=== PATIENT | female | born 1955 | race Caucasian/White ===

== ENCOUNTER → 2023-04-11 | Outpatient (CLI) | payer OTHER ==
[2023-04-11 15:50] LABS: Source, Urine Voided
[2023-04-11 16:58] LABS: Appearance, Urine Clear (Clear); Bilirubin, Urine Neg (Neg); Blood, Urine 1+ (Neg); Color, Urine Yellow (P-Yellow); Glucose Qualitative, Urine Neg (Neg); Ketones, Urine Neg (Neg); Leukocyte Esterase, Urine Neg (Neg); Nitrite, Urine Neg (Neg); Protein, Urine Neg (Neg); Urobilinogen, Urine NORM (Normal)
[2023-04-11 17:05] LABS: Bacteria Rare /hpf; Red Blood Cells, Urine 0-2 /hpf (0-2); Squamous Epithelial Cells Few /hpf (Few); White Blood Cells, Urine 0-2 /hpf (0-5)
== END ==
LOC: LAB SHORT 12:00 → LAB 12:00
PROVIDERS: Internal Medicine Nephrology
DX: N18.30 Chronic kidney disease, stage 3 unspecified (principal); D63.1 Anemia in chronic kidney disease
CPT/HCPCS: 81001

== ENCOUNTER → 2023-10-01 | Outpatient (CLI) | payer MEDICARE, OTHER ==
[~2023-10-01] MED LIST: ACETAMINOPHEN500 M2 PO; BUMETANIDE2 M6 PO; CARBAMAZEPINE200 M7 PO; FLUTICASONE-SA1 EAC9 IH; JANTOVEN3 M2 PO; KLOR-CON 1010 ME9 PO; METO5 PO; METOPROLOL SUCC25 MG PO; OYSTER SHELL C500 MG PO; SPIRONOLACTONE25 MG PO; VITAMIN D325 MC3 PO
[2023-10-01 10:28] LABS: Albumin, Blood 3.2 g/dL (3.4-5.0); Anion Gap 13 mmol/L (6-16); Blood Urea Nitrogen 23 mg/dL (8-24); Bun/Creatinine Ratio 23.7 (12.0-20.0); CO2, Blood 28 mmol/L (21-32); Calcium, Blood 9.4 mg/dL (8.5-10.1); Chloride, Blood 104 mmol/L (98-108); Creatinine, Blood 0.97 mg/dL (0.40-1.00); Glomerular Filtration Rate 64 (60-); Glucose, Blood 110 mg/dL (70-99); Magnesium, Blood 2.2 mg/dL (1.6-2.4); Phosphorus, Blood 2.7 mg/dL (2.5-4.9); Potassium, Blood 3.7 mmol/L (3.5-5.5); Sodium, Blood 141 mmol/L (136-145); Thyroid Stimulating Hormone 3.845 uIU/mL (0.360-4.800)
[2023-10-01 11:04] LABS: Free Thyroxine Index 2.5 % (1.3-4.8)
== END ==
LOC: LAB SHORT 09:50 → LAB 09:50
PROVIDERS: Internal Medicine Nephrology
DX: N18.30 Chronic kidney disease, stage 3 unspecified (principal); E29.1 Testicular hypofunction; E55.9 Vitamin D deficiency, unspecified; N25.81 Secondary hyperparathyroidism of renal origin; R94.5 Abnormal results of liver function studies; R94.6 Abnormal results of thyroid function studies; R76.9 Abnormal immunological finding in serum, unspecified
CPT/HCPCS: 80069; 83735; 84436; 84443; 84479; 85018

== ENCOUNTER 2023-10-21 02:37 | Day surgery (SDC) | payer MEDICARE, OTHER | END 2023-10-21 23:35 | disposition home or self-care (01) | LOC: WOUND | DX: L97.812 Non-pressure chronic ulcer of other part of right lower leg with fat layer exposed (principal); I89.0 Lymphedema, not elsewhere classified; I10 Essential (primary) hypertension; I73.9 Peripheral vascular disease, unspecified; I87.2 Venous insufficiency (chronic) (peripheral); I50.9 Heart failure, unspecified | CPT/HCPCS: G0463 ==

== ENCOUNTER 2023-10-30 02:19 | Day surgery (SDC) | payer MEDICARE, OTHER | END 2023-10-30 23:01 | disposition home or self-care (01) | LOC: WOUND 02:19 | DX: I89.0 Lymphedema, not elsewhere classified (principal); I11.0 Hypertensive heart disease with heart failure; I50.9 Heart failure, unspecified; I73.9 Peripheral vascular disease, unspecified | CPT/HCPCS: G0463 ==

== ENCOUNTER 2024-02-14 17:29 | Emergency (ER) | payer MEDICARE, OTHER ==
[~2024-02-14] VITALS: Ht 152.4 cm; Wt 120.7 kg
[2024-02-14 18:07] LABS: Source, Urine Clean Catch
[2024-02-14 18:11] LABS: Appearance, Urine Clear (Clear); Bilirubin, Urine Neg (Neg); Blood, Urine 2+ (Neg); Glucose Qualitative, Urine Neg (Neg); Ketones, Urine Neg (Neg); Leukocyte Esterase, Urine Neg (Neg); Nitrite, Urine Neg (Neg); Protein, Urine Neg (Neg); Specific Gravity, Urine 1.015 (1.003-1.022); Urobilinogen, Urine NORM (Normal)
[2024-02-14 18:17] LABS: Color, Urine Pale Yellow (P-Yellow)
[2024-02-14 18:19] LABS: Bacteria Rare /hpf; Red Blood Cells, Urine 0-2 /hpf (0-2); Squamous Epithelial Cells Not Seen /hpf (Few); White Blood Cells, Urine 0-2 /hpf (0-5)
[2024-02-14 18:27] LABS: BASOPHILS ABSOLUTE AUTO 0.02 K/mm3 (0.00-0.23); BASOPHILS PERCENT AUTO 0 % (0-2); EOSINOPHILS ABSOLUTE AUTO 0.08 K/mm3 (0.00-0.68); EOSINOPHILS PERCENT AUTO 1 % (0-6); Hemoglobin 13.4 g/dL (11.5-16.0); IMMATURE GRAN ABSOLUTE AUTO 0.04 K/mm3 (0.00-0.10); IMMATURE GRAN PERCENT AUTO 0 % (0-1); LYMPHOCYTES ABSOLUTE AUTO 0.66 K/mm3 (0.84-5.20); LYMPHOCYTES PERCENT AUTO 6 % (21-46); MONOCYTES ABSOLUTE AUTO 0.65 K/mm3 (0.16-1.47); MONOCYTES PERCENT AUTO 6 % (4-13); Mean Corpuscular HGB 29.7 pg (26.0-34.0); Mean Corpuscular HGB Conc 32.7 g/dL (31.5-36.5); Mean Corpuscular Volume 91 fL (80-100); NEUTROPHILS ABSOLUTE AUTO 9.03 K/mm3 (1.96-9.15); NEUTROPHILS PERCENT AUTO 86 % (41-73); Platelet Count 239 K/mm3 (150-400); RDW Coefficient Variation 13.3 % (11.7-14.2); RDW Standard Deviation 44.2 fL (35.1-46.3); Red Blood Cell Count 4.51 M/mm3 (3.80-5.20); White Blood Cell Count 10.48 K/mm3 (4.00-11.30)
[2024-02-14 18:48] LABS: Albumin, Blood 3.3 g/dL (3.4-5.0); Albumin/Globulin Ratio 0.6 (0.8-1.8); Bilirubin, Total 0.5 mg/dL (0.1-1.0); Bun/Creatinine Ratio 16.3 (12.0-20.0); Calcium, Blood 9.2 mg/dL (8.5-10.1); Creatinine, Blood 1.04 mg/dL (0.40-1.00); Globulin, Blood 5.1 g/dL (2.2-4.0); Potassium, Blood 4.7 mmol/L (3.5-5.5); Total Protein, Blood 8.4 g/dL (6.4-8.2)
[2024-02-14] MEDS ORDERED: CIPR500 PO (22:29)
[2024-02-14] MEDS ORDERED: METR500 PO (22:29)
[2024-02-14] MEDS ORDERED: Ciprofloxacin 500 MG Tab PO ONE (22:35)
[2024-02-14] MEDS ORDERED: MetroNIDAZOLE 500 MG Tab PO ONE (22:35)
[2024-02-14 23:06] VITALS: BP 139/82
== END 2024-02-14 23:01 | disposition home or self-care (01) ==
LOC: ER 17:29
PROVIDERS: Physician Assistant
DX: K57.32 Diverticulitis of large intestine without perforation or abscess without bleeding (principal); Z88.8 Allergy status to other drugs, medicaments and biological substances; Z88.5 Allergy status to narcotic agent; Z88.1 Allergy status to other antibiotic agents; Z79.899 Other long term (current) drug therapy; Z79.01 Long term (current) use of anticoagulants; I50.9 Heart failure, unspecified
CPT/HCPCS: 74177; 80053; 81001; 85025; 99284-25; A9270; Q9967